=== PATIENT | male | born 1985 | race Caucasian/White ===

== ENCOUNTER 2021-12-14 22:03 | Emergency (ER) | payer BC, SELFPAY ==
--- NOTE | ~2021-12-14 | CT_ITS ---
EXAMINATION: CT abdomen pelvis w con DATE: 12/15/2021 00:34 INDICATION: Left lower quadrant abdominal pain. TECHNIQUE: Computed tomography (CT) of the abdomen and pelvis was performed with 100 mL Omnipaque 350 intravenous contrast. Automated exposure control and iterative reconstruction technique were employe d. The dose-length product was 1522.23 mGy-cm. COMPARISON: None. FINDINGS: The visualized portions of the lung bases demonstrates mild atelectasis. No pleural effusio n. The heart size is normal. No pericardial effusion. The liver, gallbladder, spleen, pancreas, adren al glands, and right kidney are normal. There is a 2.4 cm cyst in left kidney. There are no dilated l oops of bowel. The appendix is normal. There are no pathologically enlarged lymph nodes. There is no free intraperitoneal fluid. There is mild thoracolumbar spondylosis. IMPRESSION: 1. No etiology for the patient's symptoms. Reviewed, dictated and finalized at location A.
--- NOTE | ~2021-12-14 | XR_ITS ---
EXAMINATION: XR chest 2V Exam Date/Time: 12/14/2021 22:40 CDT HISTORY: SVT. N/V/D, palpitations. hx htn Comparison: None available. RESULT: Lines, tubes, and devices: None. Lungs and pleura: Clear. Cardiomediastinal silhouette: Unremarkable. Other: No acute osseous or upper abdominal finding. IMPRESSION: No acute cardiopulmonary process. Reviewed, dictated and finalized at location K.
--- NOTE | 2021-12-14 22:07 | ECG_ITS ---
Measurements Intervals [place] Rate: 215 P: [place]: 0 QRS: 91 QRSD: 177 T: 0 QT: 200 QTc: 378 Interpretive Statements SUPRAVENTRICULAR TACHYCARDIA INTRAVENTRICULAR CONDUCTION DELAY ST-T WAVE ABNORMALITY IN INF/LAT LEADS- CONSIDER ISCHEMIA OR RATE RELATED BASELINE WANDER- V4-V6 ABNORMAL ECG NO PREVIOUS ECG AVAILABLE FOR COMPARISON Electronically Signed On 12-15-2021 6:38:30 CDT by Lee De Paz D.O.
[2021-12-14 22:12] VITALS: BP 149/84; PULSE 214; RESP 20; TEMP 36.8; O2SAT 99
[2021-12-14] MEDS: ADENOSINE IV SOLN 6 MG/2 ML VIAL IV PUSH (22:12)
[2021-12-14] MEDS: ADENOSINE IV SOLN 6 MG/2 ML VIAL 12 MG IV PUSH (22:14)
[2021-12-14 22:16] VITALS: BP 154/100; PULSE 212; RESP 22; TEMP 37.5; O2SAT 98
[2021-12-14 22:32] LABS: Basophils Percent Auto 0.3 % (0.2-1.2); Eosinophils Absolute Auto 0.1 K/mm3 (0-0.3); Eosinophils Percent Auto 0.5 % (0-4.4); Hematocrit 47.7 % (42.0-52.0); Hemoglobin 16.4 g/dL (14.0-18.0); Immature Granulocyte Absolute 0.03 K/mm3 (0.00-0.031); Immature Granulocyte Percent A 0.3 % (0-0.5); Lymphocytes Absolute Auto 0.95 K/mm3 (0.9-3.2); Mean Corpuscular HGB Conc 34.4 g/dl (32-36); Mean Corpuscular Hemoglobin 28.6 pg (26-34); Mean Corpuscular Volume 83.1 fl (80-100); Mean Platelet Volume 9.5 fl (7.4-10.4); Monocytes Absolute Auto 0.6 K/mm3 (0.1-0.6); Monocytes Percent Auto 4.7 % (2.6-8.5); Neutrophils Absolute Auto 10.3 K/mm3 (1.3-6.7); Neutrophils Percent Auto 86.2 % (45.5-73.1); Platelet Count Result 282 k/mm3 (150-375); Red Blood Count 5.74 M/mm3 (4.6-6.20); Red Cell Distribution Width 13.5 % (11.5-14.5); White Blood Count 11.9 K/mm3 (4.5-10.0)
[2021-12-14 22:42] LABS: Alanine Aminotransferase 42 U/L (6-50); Albumin Level 4.8 g/dL (3.5-5.1); Alkaline Phosphatase 106 U/L (38-126); Anion Gap 15 mmol/L (8-16); Aspartate Amino Transferase 30 U/L (17-59); Blood Urea Nitrogen 16 mg/dL (9-20); Calcium 9.1 mg/dL (8.4-10.2); Carbon Dioxide 19 mmol/L (22-30); Chloride 106 mmol/L (98-107); Estimated CRCL calculation 140 ml/min; Estimated Glomerular Filt Rate > 60; Glucose 127 mg/dL (65-110); Lipase 38 U/L (23-300); Potassium 3.3 mmol/L (3.4-5.0); Sodium 140 mmol/L (137-145)
[2021-12-14] MEDS: SODIUM CHLORIDE 0.9% IV 1,000 ML 999 ML IV CONT (22:42)
[2021-12-14 22:46] LABS: INR 1.1; Prothrombin Time 13.9 Seconds (11.1-14.7)
[2021-12-14 22:47] LABS: Partial Thromboplastin Time 28.6 SECONDS (22.3-36.8)
[2021-12-14 22:53] LABS: Troponin I 0.025 ng/mL (0.000-0.034)
--- NOTE | 2021-12-14 22:56 | ECG_ITS ---
Measurements Intervals [place] Rate: 108 P: 50 UT: 132 QRS: 68 QRSD: 96 T: 10 QT: 335 QTc: 451 Interpretive Statements SINUS TACHYCARDIA NONSPECIFIC T-WAVE ABNORMALITY ABNORMAL ECG COMPARED TO ECG 12/14/2021 22:10:29 SINUS TACHYCARDIA NOW PRESENT Electronically Signed On 12-15-2021 6:38:50 CDT by Lee De Paz D.O.
[2021-12-14 23:00] VITALS: BP 158/114; PULSE 112; RESP 16; TEMP 36.8; O2SAT 100
[2021-12-14 23:14] LABS: SARS-CoV-2 RNA PCR Negative
[2021-12-14 23:15] LABS: Magnesium 1.8 mg/dL (1.6-2.3)
[2021-12-15] VITALS: BP 118/114; PULSE 112; TEMP 36.8
--- NOTE | 2021-12-15 00:30 | ED.NAVMDI ---
HPI - Nausea/Vomiting/Diarrhea General Chief complaint: Nausea/Vomiting/Diarrhea Stated complaint: n/v, fever, elevated HR Time Seen by Provider: 12/14/21 22:18 History of Present Illness HPI Narrative: Patient is a 36-year-old male who presents to the ER with multiple issues. Patient reports he began having nausea and vomiting as well as diarrhea after ingesting what he thinks was a piece of bed fried chicken yesterday. He said around 5 episodes of diarrhea today. No blood. Unfortunately today started having racing of the heart began around noon. She reports this is happened to him intermittently throughout his life usually couple times year. Typically he can do some breathing exercises that then cause him to have a skip in his heartbeat and some acosta blood notes had a feels better. But did not work today. Patient does appear to be in SVT. No chest pain or chest pressure. No formal diagnosis of arrhythmia previously. Related Data Allergies Allergy/AdvReac Type Severity Reaction Status Date / Time No Known Allergies Allergy Verified 12/14/21 22:20 Review of Systems Review of Systems: All systems reviewed & are unremarkable except as noted in HPI and below Constitutional: Constitutional: Denies chills, Denies fatigue and Denies fever(s) ENT: Denies nasal congestion and Denies sore throat Cardiovascular: Cardiovascular: Denies chest pain, Reports rapid heart rate and Denies radiating jaw, neck or arm pain Respiratory: Respiratory: Denies cough, Denies dyspnea and Denies wheezing Gastrointestinal: Gastrointestinal: Reports abdominal pain (Left lower quadrant), Reports diarrhea, Reports nausea and Reports vomiting Genitourinary: Genitourinary: Denies hematuria, Denies dysuria and Denies urinary frequency [facility] Past Medical History Medical History (Updated 12/15/21 @ 01:53 by Ernesto Fernando MD) Healthy adult male Surgical History Surgical History (Updated 12/15/21 @ 00:34 by Ernesto Fernando MD) No history of previous surgery Social History Social History (Updated 12/15/21 @ 00:34 by Ernesto Fernando MD) Smoking status: Never smoker Substance use: never Exam Narrative: GENERAL: Comfortable-appearing, obese, and in no acute distress. HEAD: Normocephalic, atraumatic. EYES: PERRL and EOMI. ENT: Mucous membranes moist. CHEST: Clear to auscultation. No respiratory distress. HEART: Tachycardic regular. Normal peripheral pulses. ABDOMEN: Soft, mildly tender palpation left lower quadrant without guarding, nondistended. EXTREMITIES: Normal range of motion. No edema. SKIN: Warm, dry, no rash. NEURO: Alert and oriented x3. PSYCH: Normal mood and affect. Course Course Emergency Course: Discussed with Dr. [place]. Recommends Coreg 12.5 mg twice daily. Recommends close follow-up and they will reach out to contact him in the morning. Patient verbalized understanding treatment plan. Recommend he establish care with a PCP will provide the phone number of a physician. Blood pressures been running stable in the 180s systolic and greater than 100s diastolic in the last couple of hours. He has received IV metoprolol. Vital Signs Vital signs: Vital Signs Temperature 98.3 F 12/14/21 22:12 Pulse Rate 214 H 12/14/21 22:12 Respiratory Rate 20 12/14/21 22:12 Blood Pressure 149/84 H 12/14/21 22:12 Pulse Oximetry 99 12/14/21 22:12 Temperature 98.3 F 12/15/21 00:00 Pulse Rate 98 12/15/21 02:00 Respiratory Rate 16 12/15/21 02:00 Blood Pressure 188/111 H 12/15/21 02:00 Pulse Oximetry 100 12/15/21 02:00 Oxygen Delivery Room Air 12/14/21 22:16 MDM - Nausea/Vomiting/Diarrhea Lab Data Result diagrams: 12/14/21 22:27 12/14/21 22:27 Labs: Lab Results 12/14/21 12/14/21 12/14/21 Range/Units 22:26 22:27 22:27 WBC 11.9 H (4.5-10.0) K/mm3 RBC 5.74 (4.6-6.20) M/mm3 Hgb 16.4 (14.0-18.0) g/dL Hct 47.7 (42.0-52.0) % [facility]
[2021-12-15 01:04] VITALS: PULSE 104
[2021-12-15] MEDS: METOPROLOL TARTRATE INJ 5 MG/5 ML VIAL IV PUSH (01:04)
[2021-12-15 01:05] VITALS: BP 191/129; RESP 16; O2SAT 100
[2021-12-15 02:00] VITALS: BP 188/111; PULSE 98; RESP 16; O2SAT 100
== END 2021-12-15 02:20 | disposition home or self-care (01) ==
PROVIDERS: Emergency Provider Emergency Medicine
DX: K52.9 Noninfective gastroenteritis and colitis, unspecified (principal); I47.1 Supraventricular tachycardia; Z20.822 Contact with and (suspected) exposure to COVID-19; I45.9 Conduction disorder, unspecified; R94.31 Abnormal electrocardiogram [ECG] [EKG]
CPT/HCPCS: 36415; 71046; 74177; 80053; 83690; 83735; 84484; 85025; 85610; 85730; 93005; 96374; 96375; 99284; J0153; J7030; Q9967; U0003; U0005